=== PATIENT | female | born 1980 | race Caucasian/White ===

== ENCOUNTER → 2017-02-07 | Outpatient (CLI) | payer BC ==
[~2017-02-07] MED LIST: FERR1TAB23; PRENTAB26 PO
--- NOTE | 2017-02-07 13:24 | DIAGNOSTIC IMAGING REPORT ---
PELVIS ONE VIEW, RIGHT HIP 2 VIEWS HISTORY: RIGHT LOWER BACK PAIN AND RIGHT GROIN PAIN Right COMPARISON: None. FINDINGS: There is no fracture or dislocation. Soft tissues are unremarkable. No radiopaque foreign bodies. The sacrum is intact. Cartilage spaces are maintained. A 5 mm sclerotic focus within the right femoral neck favors a small bone island. IMPRESSION: No significant abnormality within the pelvis or hips. Electronically signed by: Jeff Starks M.D. 02/07/2017 1:22 PM Dictated Date/Time: 02/07/2017 1:21 PM
== END | disposition home or self-care (01) ==
LOC: C.RADBC 12:56
PROVIDERS: ATTEND Family Medicine
DX: M25.551 Pain in right hip (principal)

== ENCOUNTER → 2017-02-09 | Outpatient (CLI) | payer BC, OTHER | END | disposition home or self-care (01) | LOC: C.PAPS 11:33 | PROVIDERS: ATTEND Obstetrics & Gynecology | DX: Z01.419 Encounter for gynecological examination (general) (routine) without abnormal findings (principal) ==

== ENCOUNTER → 2018-04-05 | Outpatient (CLI) | payer BC | END | disposition home or self-care (01) | LOC: C.PAPS 18:25 | PROVIDERS: ATTEND Obstetrics & Gynecology | DX: Z01.419 Encounter for gynecological examination (general) (routine) without abnormal findings (principal) ==